=== PATIENT | male | born 1995 | race Hispanic/Latino ===

== ENCOUNTER 2017-09-29 02:43 | Emergency (ER) | payer BC ==
[2017-09-29 02:53] VITALS: RESP 18; O2SAT 100
[2017-09-29] MEDS ORDERED: Lidocaine 2% Inj (20ml) ONE (04:34)
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
[2017-09-29 08:25] VITALS: BP 118/72; PULSE 92; TEMP 98
== END 2017-09-29 06:15 | disposition home or self-care (01) ==
LOC: H.ER 02:43
DX: S09.93XA Unspecified injury of face, initial encounter (principal); Z88.0 Allergy status to penicillin; S01.511A Laceration without foreign body of lip, initial encounter; Y04.2XXA Assault by strike against or bumped into by another person, initial encounter; F10.129 Alcohol abuse with intoxication, unspecified